=== PATIENT | male | born 1940 | race Caucasian/White ===

== ENCOUNTER 2020-07-04 13:10 | Emergency (ER) | payer OTHER ==
[~2020-07-04] VITALS: Ht 182.9 cm; Wt 74.8 kg
[2020-07-04 13:18] VITALS: BP_SYST 120
--- NOTE | 2020-07-04 13:23 | NUR ---
Patient triaged and placed in waiting room. VSS and patient appears in no acute distress at this time. Awaiting available bed, and MD notified of need for MSE.
--- NOTE | 2020-07-04 13:24 | NUR ---
Patient came from home for evaluation of abrasion to right forearm. Patient reports falling while trying to step over a separator. No active bleeding or foul smell noted. Wound bed is pink.
--- NOTE | 2020-07-04 14:04 | NUR ---
ER Dr. Perry in waiting room examining patient.
[2020-07-04] MEDS ORDERED: DIPH-TET-PERTUS Vaccine 0.5 ML VIAL (ADACEL) I.M. ONE (14:15)
[2020-07-04 14:40] VITALS: BP_SYST 118
== END 2020-07-04 14:40 | disposition home or self-care (01) ==
LOC: SED 13:10
DX: S51.811A Laceration without foreign body of right forearm, initial encounter (principal); W01.0XXA Fall on same level from slipping, tripping and stumbling without subsequent striking against object, initial encounter; Y93.89 Activity, other specified; Y92.89 Other specified places as the place of occurrence of the external cause; Y99.8 Other external cause status
CPT/HCPCS: 99283

== ENCOUNTER 2021-02-18 17:09 | Inpatient (IN) | payer OTHER, SELFPAY ==
[~2021-02-18] VITALS: Ht 182.9 cm; Wt 78.5 kg
--- NOTE | 2021-02-18 17:10 | NUR ---
Patient to ER bed 8 to gown for evaluation. Side rails up. Report given to Gabriella WHARTON.
[2021-02-18 17:11] VITALS: BP_SYST 118
--- NOTE | 2021-02-18 17:12 | NUR ---
ER at bedside examining patient.
[2021-02-18] MEDS ORDERED: DILTIAZEM HCL 25 MG/5 ML VIAL IVP ONE (17:30)
[2021-02-18] MEDS ORDERED: DILTIAZEM HCL 60 MG TABLET PO ONE (17:30)
--- NOTE | 2021-02-18 17:30 | NUR ---
Pt. bib BLS from home, pt. states was on bathroom floor and to weak to get up, not completly sure how ended up on floor, states has not been eating much because nothing taste good, denies pain anywhere, AAOx4
--- NOTE | 2021-02-18 17:36 | NUR ---
# 20 gauge angiocath placed to LFA. Use of asceptic technique. Opsite placed over site. Blood return noted. Blood for lab drawn from site. Flushed with 10 cc of normal saline. No evidence of infiltration noted. Patient tolerated well.
--- NOTE | 2021-02-18 17:45 | NUR ---
Patient transported to radiology via gurney, accompanied by staff.
[2021-02-18 17:52] LABS: BILIRUBIN,URINE NEGATIVE (NEGATIVE); CLARITY/URINE CLEAR (CLEAR); COLOR,URINE YELLOW (YELLOW); GLUCOSE,URINE NEGATIVE (NEGATIVE); KETONES,URINE NEGATIVE (NEGATIVE); LEUKOCYTE ESTERASE ,URINE NEGATIVE (NEGATIVE); NITRITE, URINE NEGATIVE (NEGATIVE); PH,URINE 6.5 (5.0-8.0); PROTEIN URINE NEGATIVE (NEGATIVE); UROBILINOGEN,URINE 0.2 (0.2-1.0)
[2021-02-18 18:00] LABS: HEMOGLOBIN 10.4 g/dL (14.0-18.0); WHITE BLOOD COUNT (AUTO) 4.7 K/uL (4.8-10.8)
[2021-02-18 18:05] LABS: ANION GAP 11 (5-15); CALCIUM 8.4 mg/dL (8.4-11.0); CHLORIDE 97 mmol/L (98-107); CREATININE 0.91 mg/dL (0.55-1.30); GLUCOSE 115 mg/dL (70-99); POTASSIUM 4.1 mmol/L (3.5-5.1); SODIUM SERUM 129 mmol/L (136-145); UREA NITROGEN, BLOOD 17 mg/dL (8-21)
[2021-02-18 18:08] LABS: ACETONE, SERUM NEGATIVE (NEGATIVE)
[2021-02-18 18:10] LABS: HEMATOCRIT 30.7 % (36-54); MEAN CORPUSCULAR HEMOGLOBIN 33 pg (27-31); MEAN CORPUSCULAR HGB CONC 34 % (32-36); MEAN CORPUSCULAR VOLUME 96 fL (79.0-98.0); PLATELET COUNT (AUTO) 156 K/uL (130-430); PROTHROMBIN TIME 10.9 SECS (9.5-12.5); RED CELL DISTRIBUTION WIDTH 15.6 % (9.0-15.0)
[2021-02-18 18:11] LABS: ALANINE AMINOTRANSFERASE 14 U/L (12-78); ALBUMIN 2.9 g/dL (3.4-4.8); ASPARTATE AMINOTRANSFERASE 38 U/L (10-37); TOTAL BILIRUBIN 0.5 mg/dL (0.0-1.0)
[2021-02-18 18:15] LABS: BLOOD, URINE TRACE (NEGATIVE)
[2021-02-18] MEDS ORDERED: NACL 0.9% 1,000 ML IV ONE (18:15)
[2021-02-18 18:29] LABS: BACTERIA,URINE RARE /HPF (None Seen); RBC,URINE 0-3 /HPF (0-3); WBC,URINE NONE SEEN /HPF (0-3)
--- NOTE | 2021-02-18 19:01 | NUR ---
ADMIT ORDERS RECEIVED FROM DR. JOHNSON
[2021-02-18 19:08] LABS: BAND % (MANUAL) 18 % (0-6); LYMPHOCYTES % (MANUAL) 7 % (20-46)
[2021-02-18 19:09] LABS: BASOPHILS % (MANUAL) 0 % (0-2); EOSINOPHILS % (MANUAL) 0 % (0-7); MONOCYTES % (MANUAL) 4 % (0-11)
[2021-02-18] MEDS ORDERED: TAMS-11 (19:20)
[2021-02-18] MEDS ORDERED: MAGN400T39 PO (19:20)
[2021-02-18] MEDS ORDERED: RIVA10TA PO (19:20)
[2021-02-18] MEDS ORDERED: PRO40 PO (19:20)
[2021-02-18] MEDS ORDERED: LEVO50CA4 PO (19:20)
[2021-02-18] MEDS ORDERED: FINA5TAB11 PO (19:20)
[2021-02-18] MEDS ORDERED: DIPH25TA62 PO (19:20)
[2021-02-18] MEDS ORDERED: ACYC200C31 PO (19:20)
[2021-02-18] MEDS ORDERED: HYD10 PO ×2 (19:27)
[2021-02-18] MEDS ORDERED: BACL20 PO (19:27)
--- NOTE | 2021-02-18 19:27 | NUR ---
PT. BELONGINGS AND MED REC DONE
--- NOTE | 2021-02-18 19:27 | NUR ---
REPORT TO GWENDOLYN
--- NOTE | 2021-02-18 20:32 | NUR ---
Transfer to Tele via ACLS protocol. Licensed nurse present. IV present no signs or symptoms of infiltration.
--- NOTE | 2021-02-18 20:32 | NUR ---
ADMIT NOTE Received pt from ER to the floor with a diagnosis of WEAKNESS. Admission process initiated. patient oriented to pain management, safety and call light-teach back done-procedures explained FALL RISK MEASURES IMPLEMENTED VITAL SIGNS stable patient awake also alert .
--- NOTE | 2021-02-18 20:32 | NUR ---
Patient will be admitted to care of Dr. Ibrahim. Admitted to Tele unit. Will go to room 102. Belongings list completed. Complete and up to date summary report printed. SBAR report to be given at bedside with opportunity for questions.
[2021-02-18 20:41] VITALS: BP_SYST 129
--- NOTE | 2021-02-18 20:48 | NUR ---
CONSULTATION PAGED/CALLED Reason for Consultation: CVA Person Who was Notified: DR CARR TEXT Consulting Physician: [DR CARR Laborer Landscape Specialty: [] Ordering Physician: Milagros JOHNSON
--- NOTE | 2021-02-18 20:48 | NUR ---
CONSULTATION PAGED/CALLED Reason for Consultation: A FIB Person Who was Notified:NELLIE Consulting Physician: Jeff JOHNSON Senior Cyber Security Analyst Specialty: Ordering Physician: Sahil JOHNSON
--- NOTE | 2021-02-18 23:32 | NUR ---
Photo picture taken of SKIN TEAR on Right Fore arm & put in medical Record .
--- NOTE | 2021-02-18 23:33 | NUR ---
Photo picture taken of skin abrasion on Right KNEE & put in medical Record .
[2021-02-19 05:04] VITALS: BP_SYST 135
[2021-02-19 08:00] VITALS: BP_SYST 126
--- NOTE | 2021-02-19 08:00 | NUR ---
NURSE REPORT Report obtained from the night nurse Omar and this nurse assumed care of patient until 1100. VSS. Afeb. No c/o pain or discomfort. On tele with [facility] with BBB. BP 118/71. Fall risk.
[2021-02-19] MEDS ORDERED: HYDROcodone/ACETAMIN 10-325 MG TAB PO PRN (10:15)
[2021-02-19] MEDS ORDERED: ONDANSETRON HCL 4 MG/2 ML VIAL IVP PRN (10:15)
[2021-02-19] MEDS ORDERED: RIVAROXABAN 10 MG TABLET PO ONE (10:15)
[2021-02-19] MEDS ORDERED: ACETAMINOPHEN 325 MG TABLET PO PRN (10:15)
[2021-02-19] MEDS ORDERED: NALOXONE HCL 0.4 MG/ML AMP (NARCAN) IVP PRN ×2 (10:15)
[2021-02-19] MEDS ORDERED: LORazepam 2 MG/ML VIAL IVP PRN (10:15)
[2021-02-19] MEDS ORDERED: HYDROcodone/ACETAMIN 5-325 MG TAB (NORCO/ VICODIN) PO PRN (10:15)
--- NOTE | 2021-02-19 10:56 | NUR ---
NURSE REPORT AND ENDORSEMENT Report given to other dayshift nurse Cris at 1100 to assume care of patient. Inpatient Pharmacy asked if the patient is taking 10 mg Hydrocortisone or 15 mg and patient stated he takes 25 mg total. SBAR given to Cris with all questions asked.
[2021-02-19 11:25] VITALS: BP_SYST 101
--- NOTE | 2021-02-19 11:30 | NUR ---
ASSUME CARE: RECEIVED PATIENT FROM [employer] CLOTH INSPECTOR. PATIENT IS SITTING IN BED. ALERT, AWAKE AND ORIENTED X 4. NO SIGNS OF ACUTE DISTRESS NOTED. DENIES ANY DISCOMFORT AT THIS TIME. FALL AND SAFETY PRECAUTION REINFORCED. CALL LIGHT WITHIN REACH.
[2021-02-19] MEDS ORDERED: CARVEDILOL 6.25 MG TABLET (COREG) PO ONE (12:00)
[2021-02-19] MEDS: NORMAL SALINE 5 ML DISP.SYRIN IVF SCH ×2 (13:26→20:37)
[2021-02-19] MEDS ORDERED: NORMAL SALINE 5 ML DISP.SYRIN IVF SCH (14:00)
[2021-02-19 15:25] VITALS: BP_SYST 101
--- NOTE | 2021-02-19 18:40 | NUR ---
CLOSING NOTES: PATIENT EATING DINNER. NO ACUTE DISTRESS NOTED. DENIES ANY DISCOMFORT AT THIS TIME. FALL AND SAFETY PRECAUTION REINFORCED. CALL LIGHT WITHIN REACH. WILL CONTINUE MONITOR UNTIL ENDORSE TO FISCAL MANAGER RN.
[2021-02-19 19:00] VITALS: BP_SYST 114
--- NOTE | 2021-02-19 19:15 | NUR ---
change of shift pt.presents quiescent affect;calm,resting.pt.presents hx;falls:bed alarm engaged.pt.presents iv access intact iv lock.i have re-iterated to the pt.that mri in am:02/20/21.i have re-iterated to the pt.to call nsg for assistance.urinal w/in access of the pt.general status stable. respiratory statu s el;iuanvoew @room air.callight/telephon sylvia/mayra cces sof the pt/generas
[2021-02-19 20:00] VITALS: BP_SYST 114
--- NOTE | 2021-02-19 20:00 | NUR ---
pt.assessed.v/s assessed values w/in normal limits.no c/o pain,nausea.i have apprised the pt.that snacks/beverages are available w/in the shift.no requests posited@this hour.i have attended to the urinal measured places w/in access of the pt.bed alarm engaged.pt.capable to reposition self.general status stable.respiratory status stable;unlabored.call light/ telephone w/in access of the pt.
[2021-02-19] MEDS: SULFAMET 800MG/TMP 160MG, 20 ML UDBTL PO SCH ×2 (20:35→20:48)
[2021-02-19] MEDS: CARVEDILOL 6.25 MG TABLET (COREG) PO SCH (20:36)
--- NOTE | 2021-02-19 20:39 | NUR ---
Paged Dr. Ibrahim. Ramakrishna
[2021-02-19] MEDS ORDERED: DIPHENHYDRAMINE HCL 12.5 MG/5 ML UDC PO PRN (20:45)
--- NOTE | 2021-02-19 20:45 | NUR ---
pt.had apprised me that his home schedule medicactions include benadryl:50mg po@2100p;sleep.i noted benadryl:25mg po@0900a.pt.stated that was incorrect.;a paged to apprised of the medication requests per the pt.
[2021-02-19] MEDS ORDERED: ATORVASTATIN 20 MG TABLET PO SCH (21:00)
[2021-02-19] MEDS ORDERED: DIPHENHYDRAMINE HCL 50 MG CAPSULE PO SCH (21:00)
--- NOTE | 2021-02-19 21:00 | NUR ---
2100pmedications administered.pt.capable to ingest the po medications w/out difficulty.;a returned the page.i apprised of the pt's requests for benadryl;50mg [id number];home schedule and the benadryl:25mg po 0900a schduled.incorrect. ordered benadryl;50mg po q-hs and to d/c the 0900a benadryl dose.
--- NOTE | 2021-02-19 22:00 | NUR ---
pt.assessed.pt.presents quiescent affect;calm,somnolent.per flacc pain mgx pt.absent facial grimaces/body posturing. i have attended to the urinal.measured placed w/in access of the pt.general status stable.respiratory status stable; unlabored.call light/telephone w/in access of the pt.
--- NOTE | 2021-02-20 | NUR ---
pt.assessed.v/s assessed value wnl.no c/o pain,nausea.no requests posited@this hour.general status stable.respiratory status stable.pt.capable to reposition self.call light/telephone w/in access of the pt.
[2021-02-20 00:27] VITALS: BP_SYST 118
--- NOTE | 2021-02-20 02:00 | NUR ---
pt.assessed.pt.presents quiescent affect;calm,somnolent.per flacc pain mgx pt.absent facial grimaces/body posturing.pt.capable to reposition self.i have attended to th urinal placed w/in aces of the pt. general status stable.respiratory statu stable;unlabored.call light/telephone w/in access of the pt.
--- NOTE | 2021-02-20 04:00 | NUR ---
pt.assessed.pt.presents quiescent affect;calm,somnolent.per flacc pain mgx pt.absent facial grimaces/body posturing. pt.capable to reposition self.call light/telephone w/in access of the pt.
[2021-02-20 06:27] LABS: EOSINOPHILS # (AUTO) 0.1 K/uL (0.0-0.4); EOSINOPHILS % (AUTO) 4.2 % (0.0-4.0); HEMATOCRIT 27.7 % (36-54); HEMOGLOBIN 9.3 g/dL (14.0-18.0); LYMPHOCYTES # (AUTO) 0.2 K/uL (1.0-5.5); MEAN CORPUSCULAR HEMOGLOBIN 33 pg (27-31); MEAN CORPUSCULAR HGB CONC 34 % (32-36); MEAN CORPUSCULAR VOLUME 97 fL (79.0-98.0); MONOCYTES # (AUTO) 0.6 K/uL (0.0-1.0); MONOCYTES % (AUTO) 21.5 % (1.7-9.3); NEUTROPHILS # (AUTO) 1.8 K/uL (1.8-7.7); NEUTROPHILS % (AUTO) 67.3 % (40.0-70.0); PLATELET COUNT (AUTO) 146 K/uL (130-430); RED BLOOD CELL COUNT(AUTO) 2.86 MIL/uL (4.2-6.2); RED CELL DISTRIBUTION WIDTH 15.6 % (9.0-15.0); WHITE BLOOD COUNT (AUTO) 2.6 K/uL (4.8-10.8)
--- NOTE | 2021-02-20 06:30 | NUR ---
pt.assessed.pt.presents quiescent affect;calm,resting.i have weighed the pt.2/t chf.no c/o pain,nausea.i have attended to the urinal measured placed w/in access of the pt.general status stable.respiratory status stable;unlabored.call light/telephone w/in access of the pt.
[2021-02-20 06:32] LABS: ALANINE AMINOTRANSFERASE 15 U/L (12-78); ALBUMIN 2.4 g/dL (3.4-4.8); ANION GAP 12 (5-15); ASPARTATE AMINOTRANSFERASE 29 U/L (10-37); CHLORIDE 104 mmol/L (98-107); CREATININE 1.02 mg/dL (0.55-1.30); GLUCOSE 98 mg/dL (70-99); PHOSPHORUS 3.1 mg/dL (2.7-4.5); POTASSIUM 3.9 mmol/L (3.5-5.1); SODIUM SERUM 136 mmol/L (136-145); TOTAL BILIRUBIN 0.3 mg/dL (0.0-1.0); UREA NITROGEN, BLOOD 15 mg/dL (8-21)
[2021-02-20] MEDS ORDERED: LEVOTHYROXINE SODIUM 0.05 MG TABLET PO SCH (07:00)
[2021-02-20] MEDS ORDERED: HYDROCORTISONE 10 MG TABLET (CORTEF) PO SCH ×2 (08:00→10:00)
[2021-02-20] MEDS: CARVEDILOL 6.25 MG TABLET (COREG) PO SCH (08:54)
--- NOTE | 2021-02-20 08:55 | NUR ---
Opening note/Refused Meds/Called Radiology patient resting in bed, a/ox4, denies pain, patient is anxious about going home and pending MRI today, patient wants to leave AMA if the MRI will not be this morning. Called Radiology regarding MRI - survey technologist will be here in the hospital around 9AM - informed the patient of this, the patient is willing to wait until then and he will decide later if he still wants to leave AMA - the patient verbalized understanding, bed in lowest position, two side rails up, call light within reach, fall and aspiration precautions in place.
[2021-02-20] MEDS ORDERED: FINASTERIDE 5 MG TABLET (PROSCAR) PO SCH (09:00)
[2021-02-20] MEDS ORDERED: LOSARTAN POTASSIUM 25 MG TABLET PO SCH (09:00)
[2021-02-20] MEDS ORDERED: ACYCLOVIR 400 MG TABLET PO SCH (09:00)
[2021-02-20] MEDS ORDERED: DIPHENHYDRAMINE HCL 25 MG CAPSULE PO SCH (09:00)
[2021-02-20] MEDS ORDERED: MAGNESIUM OXIDE 400 MG TABLET PO SCH (09:00)
[2021-02-20] MEDS ORDERED: TAMSULOSIN HCL 0.4 MG CAP PO SCH (09:00)
[2021-02-20] MEDS ORDERED: RIVAROXABAN 10 MG TABLET PO SCH (09:00)
[2021-02-20] MEDS ORDERED: PANTOPRAZOLE SODIUM 40 MG TAB PO SCH (09:00)
--- NOTE | 2021-02-20 09:43 | NUR ---
AMA: Patient does not wish to proceed with medical care recommended by Sahil Pereira. Patient given information related to possible complications, up to and including , which could occur as a result of leaving hospital at this time. Patient verbalizes understanding of risks involved leaving against medical advice. Patient has signed AMA form. IV line removed, catheter tip intact.
--- NOTE | 2021-02-20 09:47 | NUR ---
Sahil Pereira notified that patient left AMA.
[2021-02-20 10:36] VITALS: BP_SYST 134
--- NOTE | 2021-02-20 15:05 | NUR ---
Disposition 07 : AMA
== END 2021-02-20 09:43 | disposition left against medical advice (07) | DRG 641 ==
LOC: SED 17:09 → STU 19:55
PROVIDERS: ADMIT Preventive Medicine Preventive Medicine/Occupational Environmental Medicine; ATTEND Preventive Medicine Preventive Medicine/Occupational Environmental Medicine
DX: E87.1 Hypo-osmolality and hyponatremia (principal); C82.90 Follicular lymphoma, unspecified, unspecified site; R65.10 Systemic inflammatory response syndrome (SIRS) of non-infectious origin without acute organ dysfunction; D64.9 Anemia, unspecified; D72.819 Decreased white blood cell count, unspecified; R74.01 Elevation of levels of liver transaminase levels; E88.09 Other disorders of plasma-protein metabolism, not elsewhere classified; Z20.822 Contact with and (suspected) exposure to COVID-19; I25.10 Atherosclerotic heart disease of native coronary artery without angina pectoris; I25.2 Old myocardial infarction; Z91.041 Radiographic dye allergy status; Z86.73 Personal history of transient ischemic attack (TIA), and cerebral infarction without residual deficits; Z95.1 Presence of aortocoronary bypass graft
CPT/HCPCS: 36415; 70450-TC; 71045; 76376; 80053; 81000; 82009; 82550; 83605; 83735; 84100; 84484; 85007; 85025; 85027; 85610-TC; 85730-TC; 93005; 93306; 93880; 96360; 99285; G0378; Q0163